=== PATIENT | male | born 1995 | race Caucasian/White ===

== ENCOUNTER → 2019-05-01 | Outpatient (CLI) | payer OTHER | LOC: RAD 09:44 | DX: M51.36 Other intervertebral disc degeneration, lumbar region (principal) ==

== ENCOUNTER 2019-06-13 15:00 | Outpatient (RCR) | payer OTHER | END 2019-08-07 | disposition still patient (30) | LOC: PT | DX: S39.92XA Unspecified injury of lower back, initial encounter (principal) ==

== ENCOUNTER → 2021-12-13 | Outpatient (CLI) | payer BC ==
[2021-12-13 14:48] LABS: BASO # 0.02 K/mm3 (0.02-0.10); EOS # 0.04 K/mm3 (0.04-0.40); EOS % 0.5 % (0.0-4.0); HEMOGLOBIN 18.8 g/dL (13.5-18.0); LYMPH# 1.78 K/mm3 (1.50-4.00); MEAN CELL VOLUME 85 fl (78-100); MEAN CORPUSCULAR HEMOGLOBIN 29 pg (27-31); MEAN CORPUSCULAR HGB CONC 34 g/dL (33-37); MEAN PLATELET VOLUME 11.3 fl (7.4-10.4); MONO # 0.63 K/mm3 (0.20-0.80); NEU # 5.74 K/mm3 (1.40-6.50); PLATELET COUNT 254 K/mm3 (130-400); RED BLOOD COUNT 6.47 M/mm3 (4.20-5.60); RED CELL DISTRIBUTION WIDTH 12.5 % (11.5-14.5); WHITE BLOOD COUNT 8.3 K/mm3 (4.8-10.8)
[2021-12-13 15:06] LABS: ALBUMIN 4.6 g/dL (3.5-5.0); POTASSIUM 4.7 mmol/L (3.5-5.1); SODIUM 141 mmol/L (136-145)
[2021-12-13 15:07] LABS: CALCIUM 10.5 mg/dL (8.3-10.5)
[2021-12-13 15:09] LABS: GLUCOSE 95 mg/dL (75-110); TOTAL PROTEIN 8.7 g/dL (6.4-8.3)
[2021-12-13 15:10] LABS: CARBON DIOXIDE 21 mmol/L (22-29); TOTAL BILIRUBIN 0.5 mg/dL (0.2-1.2)
[2021-12-13 15:14] LABS: AST-SGOT 40 U/L (5-34)
[2021-12-13 15:15] LABS: ALT/SGPT 77 U/L (0-55)
[2021-12-13 15:26] LABS: TROPONIN-I < 0.030 ng/mL (<0.030)
[2021-12-13 15:29] LABS: D-DIMER 0.27 mg/L FEU (0.15-0.50)
== END ==
LOC: LAB 14:27
PROVIDERS: Nurse Practitioner
DX: R07.9 Chest pain, unspecified (principal); Z20.822 Contact with and (suspected) exposure to COVID-19

== ENCOUNTER → 2022-06-16 | Outpatient (CLI) | payer BC ==
[2022-06-16 12:41] LABS: POTASSIUM 4.2 mmol/L (3.5-5.1)
[2022-06-16 12:42] LABS: ALBUMIN 4.6 g/dL (3.5-5.0)
[2022-06-16 12:43] LABS: CALCIUM 10.3 mg/dL (8.3-10.5)
[2022-06-16 12:44] LABS: TOTAL PROTEIN 7.8 g/dL (6.4-8.3)
[2022-06-16 12:46] LABS: TOTAL BILIRUBIN 0.8 mg/dL (0.2-1.2)
== END ==
LOC: LAB 12:17
PROVIDERS: Family Medicine
DX: Z00.00 Encounter for general adult medical examination without abnormal findings (principal); Z13.1 Encounter for screening for diabetes mellitus; Z13.6 Encounter for screening for cardiovascular disorders; E66.01 Morbid (severe) obesity due to excess calories

== ENCOUNTER → 2022-07-06 | Outpatient (CLI) | payer BC | LOC: LAB 16:29 | DX: E78.5 Hyperlipidemia, unspecified (principal); E66.9 Obesity, unspecified ==